=== PATIENT | female | born 1950 | race Caucasian/White ===

== ENCOUNTER 2016-04-20 16:02 | Inpatient (IN) | payer OTHER ==
--- NOTE | ~2016-04-20 | DS ---
Discharge Summary [facility] [address] [place]. [address] NAME: ROXANNA YOUNGER : 46 STATUS : DIS IN PAT#: [id number] AGE: 65 ADM/REG DATE : 04/20/16 MR#: [id number] REPORT SERV DATE: 04/29/16 DICTATED BY: JOSE MIGUEL NOBLE DATE: 04/29/16 REPORT STATUS : Draft TRANSCRIBED BY: MODL DATE: 04/29/16 ADMISSION DATE: 04/20/2016 DISCHARGE DATE: 04/29/2016 Please also refer to history of present illness dictated by Dr. Corona on 04/20/2016. Please also refer to Dr. Corona's interim discharge summary dictated on 04/25/2016. DIAGNOSES ON DISCHARGE: 1. Status post dehydration, present on admission, currently resolved. 2. Nausea and vomiting, present on admission secondary to gastroparesis, currently resolved. The patient tolerates her diet. 3. Diabetes mellitus, controlled. 4. History of permanent pacemaker placement in the past for history of sick sinus syndrome, currently stable. 5. Bipolar disorder. Evaluated by psychiatrist, Dr. Donis, in stable mood. There is no evidence of exacerbation. 6. Anxiety disorder, improved. 7. Hypothyroidism, controlled. CONSULTANTS ON THE CASE: Dr. Donis of Psychiatry as well as nurse practitioner of Gastroenterology, [place] and also alcohol still operator, Dr. Castillo Jorge. IMAGING STUDIES DONE DURING THIS HOSPITALIZATION: CT of the abdomen and pelvis with contrast done on 04/24/2016 showed small to moderate right and small pleural effusion on the left, as well as there was an enhancing pancreatic tail structure identified and a lesion was seen in the pancreatic head on the previous exam, which was identified on image 35, and measures about 0.9 to 1.[address] examination. It has stable appearance, and it raises concern that this may represent simply spare pancreatic tissue; however, strong consideration towards neuroendocrine tumor should also be considered. They appear to be little changed. The study performed in 2016 was without contrast initially. There was then an arterial study of the arterial and venous phases also performed at that time, showing the ductal system to be as prominent as on previous examination, so there is no evidence of any progressive biliary ductal enlargement. Common bile duct in the coronal plane on today's exam measures 0.93 cm. In the pelvis, there was a prior hysterectomy, there was some diverticular formation, no evidence of inflammation. Mesenteric duplex ultrasound did not show any evidence of stenosis. Chest x-ray, which was done on 04/27, was clear. HOSPITAL COURSE: Briefly, the patient was seen by Dr. Corona since admission until 04/27. When I saw the patient, the patient was very stable. She did not have any problems. She was tolerating her diet well when I saw her first time on 04/27, and her all medical problems were stable. She was waiting for placement, she needed inpatient rehabilitation because she Discharge Summary [address] [address] [place]. [address] NAME: ROXANNA YOUNGER : 46 STATUS : DIS IN PAT#: [id number] AGE: 65 ADM/REG DATE : 04/20/16 MR#: [id number] REPORT SERV DATE: 04/29/16 DICTATED BY: JOSE MIGUEL NOBLE DATE: 04/29/16 REPORT STATUS : Draft TRANSCRIBED BY: MITCHELL DATE: 04/29/16 had history of multiple falls in the past and she was recommended to have inpatient rehabilitation. She was also evaluated by Dr. Donis for her bipolar disorder, and Dr. Donis saw her for several consecutive days and he started her on Abilify, and he gave also recommendation to decrease the dose of clonazepam at night to 1 mg a day, and after seeing her for several days, he came to the conclusion that her mood is stable and she can be safely discharged to home or to rehabilitation wherever she will be approved. He also recommended the patient to follow up with [facility] psychiatrist in [place] in one to two weeks after discharge, so the patient was waiting for placement, but because her approval was delayed, today the patient refused to stay anymore in the hospital. She said that she understands that she is at risk for falling and she is at risk to harm her health if she will fall down, but she said that she cannot stay anymore in the hospital because her approval may take another week, and she strongly requested for her to be discharged today. I had a long discussion with the patient in the presence of nurse, Jennifer. I explained to her that since she lives alone, she may fall and she may have fractures and it can be dangerous for her health, but she understands this all and she said no matter what, she wants to be discharged, she wants to go home, and she said that her wheelchair at home is electrical and it is safer and she will follow all safety precautions. I also spoke with the patient's daughter, Sandra Rivera, and I told her that the patient wants to go home and she is refusing to stay in the hospital to wait for placement. She also understood it, and I encouraged her to discuss with her mother and to convince her to stay. She tried to convince her, but the patient refused. She said that she is going home. She is in clear mind and she understands that she may fall at home, but she still wants to be discharged. I spoke with Silvia, case hardener, that we were able to arrange for this patient for home health. Home Health to do physical therapy to help her with daily living to help her with medications, so now we will have Home Health to help with this patient, and I told her that she needs to be on fall precautions. She understands this. Her diabetes mellitus was very well controlled. She did not have any episodes of hypoglycemia. She was eating and drinking without any nausea and vomiting. Her blood sugar was 151 and 127. I recommended to use her metformin as needed because she told me that she sometimes only controls her diabetes with a diet. Also, Dr. Donis gave her prescription for Abilify 10 mg a day to continue, as well as she was given prescription for Protonix 40 mg p.o. twice a day. She refused to take Carafate. The patient to continue her levothyroxine at a dose of 125 p.o. daily and Reglan 10 mg before meals and at bedtime, which she takes at home. The patient to continue her tizanidine 4 mg at bedtime as needed and also the patient was recommended not to continue twice a day p.r.n., only 4 mg at bedtime as needed. The patient to decrease her bedside Klonopin to 1 mg a day, just take half of the pill that she has at home. The patient to stop Cymbalta. The patient to continue her Trintellix at 10 mg at bedtime and continue Imitrex as needed for headache, metformin 500 p.o. daily as needed if she needs it if blood sugar is elevated, Zofran 4-8 mg every six hours as needed. The patient was recommended to stop her hydrocodone. Once again, long discussion was held with the patient regarding understanding the risk of being discharged with the risk of fall. She understands everything, she is in clear mind. She was recommended to follow up with Dr. Baez next week; follow up with Dr. Plaza or Discharge Summary [address] [address] NAME: ROXANNA YOUNGER : 46 STATUS : DIS IN PAT#: [id number] AGE: 65 ADM/REG DATE : 04/20/16 MR#: [id number] REPORT SERV DATE: 04/29/16 DICTATED BY: JOSE MIGUEL NOBLE DATE: 04/29/16 REPORT STATUS : Draft TRANSCRIBED BY: MITCHELL DATE: 04/29/16 Dr. Jorge, appointment is scheduled for at 3:15 for her pancreatic lesion; follow up with Dr. Baez scheduled for 05/05 at 2:30. Regarding psychiatric services at [facility] at [place], we offered the patient to schedule with them, but she said that she will schedule herself as well as [facility] is arranged. The patient was discharged in stable condition. I spent 45 minutes on discharge. Her daughter was updated. /SUNL Jose Miguel Noble M.D. / [id number] CC: Forrest Raymond M.D. Gregory Olds, MD Denis Kennedy, M.D. James Scott Manton, M.D.
--- NOTE | ~2016-04-20 | IDS ---
Interim Discharge Summary [facility] [address] [place]. [address] NAME: ROXANNA YOUNGER : 46 STATUS : ADM IN [facility]#: [id number] AGE: 65 ADM/REG DATE : 04/20/16 MR#: [id number] REPORT SERV DATE: 04/25/16 DICTATED BY: DONNA WINSLOW DATE: 04/25/16 REPORT STATUS : Draft TRANSCRIBED BY: MODL DATE: 04/25/16 ADMISSION DATE: 04/20/2016 DISCHARGE DATE: CONSULTING PHYSICIANS: Dr. Donis for Psychiatry and Dr. Ramirez for GI. DIAGNOSES: 1. Status post dehydration, improved. 2. Nausea and vomiting with history of gastroparesis, improved. 3. Diabetes. 4. History of permanent pacemaker with sick sinus syndrome. 5. Bipolar disorder. 6. Anxiety disorder. 7. Hypothyroidism. DIAGNOSTIC EXAMS: Gastric emptying study showing significant improvement in gastric emptying compared to previous half time, it is now just below the upper limit of normal. Ultrasound of the abdomen showing fatty infiltration of the liver status post cholecystectomy. No significant bile duct dilatation. Pancreas not well visualized. Mild bilateral renal atrophy. Mesenteric duplex. Negative evidence for stenosis. CAT scan of the abdomen and pelvis showing small to moderate right and small left pleural effusion. Calcified coronaries. Ductal system is prominent, does not appear to be obstructed by mass. Enhancing pancreatic tail structure, similar to November 2015. Pancreatic head lesion measuring about 0.9-1.4 cm, stable in appearance from previous. HOSPITAL COURSE: Please refer to the H and P done by myself dated on 04/20/2016. Briefly, this is a 65-year-old female, who comes in for nausea and vomiting. 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 She was recently admitted and discharged from [facility] and adjusted her medications. She was placed on Depakote and she was not able to tolerate it and she has been having some nausea and vomiting. Got weaker and weaker, and was then brought to the PCPs office and she was referred for a direct admit. The patient was found to be dehydrated. We gave her some fluids. We got Psychiatry involved, and they adjusted her psychiatric medication while we took her off from Depakote. We got GI involved as well. We did the above tests and presently, the patient does not have any more nausea and vomiting. Slight increase her p.o. intake and seems to be tolerating soft food. She expressed her wishes to go to rehab. We got the report back from [facility] that they tried several rehab facilities and nobody wants to take her. This was discussed with her and our Case Management, and we are going to see if we are going to be more successful this time. It is unfortunate that she lives by herself, and she is basically wheelchair bound. If we are not able to get any rehab facility, she would likely go home with home health and home PT. A partner of mine will be following up the patient starting Tuesday. RLY/MODL Interim Discharge Summary [address] [place]. [address] NAME: ROXANNA YOUNGER : 46 STATUS : ADM IN PAT#: [id number] AGE: 65 ADM/REG DATE : 04/20/16 MR#: [id number] REPORT SERV DATE: 04/25/16 DICTATED BY: DONNA WINSLOW. DATE: 04/25/16 REPORT STATUS : Draft TRANSCRIBED BY: MODRamirez DATE: 04/25/16 Donna Winslow M.D. / [id number] CC: Forrest Prince M.D.
--- NOTE | ~2016-04-20 | HP ---
History And Physical [id number] [facility] [place]. [address] NAME: ROXANNA YOUNGER : 46 STATUS : ADM IN [facility]#: [id number] AGE: 65 ADM/REG DATE : 04/20/16 MR#: [id number] REPORT SERV DATE: 04/20/16 DICTATED BY: DONNA WINSLOW DATE: 04/20/16 REPORT STATUS : Draft TRANSCRIBED BY: MODL DATE: 04/20/16 DATE OF ADMISSION: 04/20/2016 HISTORY OF PRESENT ILLNESS: This is a 65-year-old female who was directly admitted for dehydration. The patient lives by herself and has been wheelchair bound for about 15 years now due to complications to her knees. She had a fall recently and was admitted to [facility]. During that time, they adjusted some of her medications including removing her from the Cymbalta and Brintellix and placed her on Depakote. She was seen by psychiatrist at that time. She was also treated for urinary tract infection, and according to Dr. Baez possible aspiration as well. The patient was being sent to rehab, however, the insurance company refused, and the patient was discharged to home. The patient did well for one day. However, she fell again and stayed on the ground for about a day. When her family saw her, they tried to help her out, however, she was not eating and she had some nausea and vomiting. She believes that it was the Depakote that is doing this, and she stopped taking this and went to see Dr. Baez today. He believed that the patient is dehydrated and sent the patient here to be hydrated, evaluated, and then he requested Dr. Jorge and the psychiatrist to see the patient. The patient did not have any fever, however, she felt warm and cold from time to time. There is no chills or sweats. There is no hematemesis. There was no note of any urinary or bowel changes. There is no cough or shortness of breath. She denies any near syncopal or syncopal episode. However, the Depakote, she told me make her feel strange and even combative at times. She denied any open wound or rashes. No seizures. REVIEW OF SYSTEMS: The rest of the 14-point review of system is negative except as above. PAST MEDICAL HISTORY: Includes lupus, rheumatoid arthritis, depression, bipolar, diabetes, sick sinus syndrome with permanent pacemaker, nephrolithiasis, TIA, migraine headaches, knee replacements with complications and MRSA, history of T-cell lymphoma of cheek, chronic back pain, orthostatic hypotension, pancreatic head nodule, PAD, genital herpes, UTIs, hypothyroidism, gastroparesis. PAST SURGICAL HISTORY: Bilateral knee surgery, right arm surgery, right ankle surgery, cholecystectomy, hysterectomy, appendectomy. ALLERGIES: SHE IS ALLERGIC TO CIPRO AND LAMICTAL. MEDICATIONS: Include Depakote, but previously on Cymbalta and Brintellix. She is on Klonopin, [place], Synthroid, metformin, Reglan, Zofran, Imitrex, Zanaflex. FAMILY HISTORY: Mom with heart disease and bowel surgery. Daughter with pain pump. The patient lives by herself, does not smoke, drink, or use recreational drugs. PHYSICAL EXAMINATION: GENERAL: The patient is alert and oriented x3, not in cardiopulmonary distress. VITAL SIGNS: Include a saturation of 93% on room air, temperature of 99.1, blood pressure of History And Physical [address] [address] NAME: ROXANNA YOUNGER : 46 STATUS : ADM IN [facility]#: [id number] AGE: 65 ADM/REG DATE : 04/20/16 MR#: [id number] REPORT SERV DATE: 04/20/16 DICTATED BY: DONNA WINSLOW DATE: 04/20/16 REPORT STATUS : Draft TRANSCRIBED BY: MODL DATE: 04/20/16 140/80, respiratory rate of 14, heart rate of 65. NECK: She has supple neck. No JVD or carotid bruits. No lymphadenopathy. [place] conjunctivae. Anicteric sclerae. No pharyngeal erythema. LUNGS: Clear lungs. No rales, no wheezes. CARDIOVASCULAR: Regular rate and rhythm. No murmurs appreciated. Positive bowel sounds. Soft, nontender, no masses. EXTREMITIES: Fair pulses. No edema. NEURO: Nonlocalizing. ASSESSMENT: 1. Dehydration. 2. Nausea and vomiting with history of gastroparesis. 3. Diabetes. 4. History of rheumatoid arthritis and lupus. 5. Bipolar with anxiety. 6. History of permanent pacemaker with sick sinus syndrome. 7. Peripheral artery disease. PLAN: The patient will need to be admitted for her dehydration. We will check her labs, hydrate her. We will continue her home medications, but we will restart the Cymbalta and Trintellix and get Psychiatric consult. We will place her on antiemetics, subcu insulin protocol, check the hemoglobin A1c and TSH. We will re-hold her metformin for now. We will get GI consult for gastroparesis as requested by the patient and her PCP. This has been explained to the patient in front of the daughter and they agreed and understood the plan. BRITTNEY/MITCHELL Donna Winslow M.D. / [id number] CC: Forrest Prince M.D.
--- NOTE | ~2016-04-20 | EGD ---
EGD REPORT [facility] [address] [address] NAME: ROXANNA YOUNGER : 46 STATUS : ADM IN PAT#: [id number] AGE: 65 ADM/REG DATE : 04/20/16 MR#: [id number] REPORT SERV DATE: 04/23/16 DICTATED BY: JUSTIN HUERTA DATE: 04/23/16 REPORT STATUS : Draft TRANSCRIBED BY: [facility] DATE: 04/23/16 Endoscopy Center Patient Name: Roxanna Younger Date of : 1950 Attending MD: JUSTIN HUERTA MD Procedure Date No Time: 04/23/2016 Procedure: Upper GI endoscopy Indications: Epigastric abdominal pain, Dyspepsia, Persistent vomiting of unknown cause Referring MD: LORETTA ROMO Medicines: Monitored Anesthesia Care Complications: No immediate complications. Estimated blood loss: Minimal. Procedure: Pre-Anesthesia Assessment: - ASA Grade Assessment: III - A patient with severe systemic disease. After obtaining informed consent, the endoscope was passed under direct vision. Throughout the procedure, the patient's blood pressure, pulse, and oxygen saturations were monitored continuously. The GIF [id number] was introduced through the mouth, and advanced to the second part of duodenum. The upper GI endoscopy was accomplished without difficulty. The patient tolerated the procedure well. Findings: The examined esophagus was normal. Patchy mildly erythematous mucosa without bleeding was found in the gastric antrum. There was also a scar in the antrum suggestive of prior peptic ulcer disease. Biopsies were taken with a cold forceps for Helicobacter pylori testing. Estimated blood loss was minimal. The examined duodenum was normal. The cardia and gastric fundus were normal on retroflexion. The exam was otherwise without abnormality. Impression: - Erythematous mucosa in the antrum. Biopsied. - The examination was otherwise normal. Recommendation: - Return patient to hospital [facility] for ongoing care. - Clear liquid diet. - Continue Reglan QID - Use Protonix (pantoprazole) 40 mg PO BID. - Check Mesenteric US Procedure Code(s): --- Professional --- EGD REPORT [facility] [address] [facility] [place]. [address] NAME: ROXANNA YOUNGER : 46 STATUS : ADM IN [facility]#: [id number] AGE: 65 ADM/REG DATE : 04/20/16 MR#: [id number] REPORT SERV DATE: 04/23/16 DICTATED BY: JUSTIN HUERTA DATE: 04/23/16 REPORT STATUS : Draft TRANSCRIBED BY: [facility] SERVICES DATE: 04/23/16 [id number], Esophagogastroduodenoscopy, flexible, transoral; with biopsy, single or multiple Diagnosis Code(s): --- Professional --- K31.9, Disease of stomach and duodenum, unspecified R10.13, Epigastric pain K30, Functional dyspepsia R11.10, Vomiting, unspecified CPT copyright 2013 [employer]. All rights reserved. The codes documented in this report are preliminary and upon clinical coder review may be revised to meet current compliance requirements. Justin Huerta MD JUSTIN HUERTA MD 04/23/2016 8:24 AM This report has been signed electronically. Number of Addenda: 0 Note Initiated On: 04/23/2016 7:47 AM Scope Withdrawal Time 0 hours 0 minutes 0 seconds [address] [facility] [place] [address]
--- NOTE | ~2016-04-20 | CN ---
Consultation Report [facility] [address] [place]. [address] NAME: ROXANNA YOUNGER : 46 STATUS : ADM IN PAT#: [id number] AGE: 65 ADM/REG DATE : 04/20/16 MR#: [id number] REPORT SERV DATE: 04/21/16 DICTATED BY: TAI CHU DATE: 04/21/16 REPORT STATUS : Draft TRANSCRIBED BY: MODL DATE: 04/21/16 PSYCHIATRIC CONSULTATION DATE OF CONSULTATION: 04/21/2016 I reviewed this patient's current and old medical records. I discussed patient's status with her nurse. HISTORY OF PRESENT ILLNESS: She was admitted with nausea and dehydration. I was consulted to address her bipolar status. PAST PSYCHIATRIC HISTORY: She was at [facility] recently, probably within the past month, when she was seen by the psychiatrist there and her psychotropic medications were changed. Her Cymbalta and Brintellix were stopped and Depakote was started. After discharge from [place], she experienced nausea, anorexia, and vomiting. She attributed these problems to the Depakote and she stopped taking it. She reports that she had a similar problem with Depakote when this medication was introduced a number of years ago. It should be noted that Brintellix recently had a name change to Trintellix. She reports that she has suffered from recurring bouts of depression for over 10 years. She also has experienced periods of heightened motion and energy and periods of severe insomnia where she went without sleep for a number of days at a time. SOCIAL HISTORY: She lives alone. She is wheelchair-bound because of failed bilateral knee replacements. Her daughter lives nearby and she checks on her frequently. Her mother also lives in the area. FAMILY HISTORY: A maternal uncle suffered from depression. MENTAL STATUS: She was awake and alert. Her mood was anxious and depressed. Her affect was labile. Her thinking was logical. She had no delusions. She had no hallucinations. She was oriented to time, place, and person. She demonstrated good, recent, and remote memory. DIAGNOSIS: Bipolar disorder, NOS. RECOMMENDATIONS: 1. Discontinue Cymbalta. 2. Continue Trintellix 10 mg at bedtime. 3. Continue Klonopin 2 mg at bedtime. 4. Add Abilify 5 mg at bedtime. 5. Request a copy of her discharge summary and psychiatric consultation from [facility]. 6. I will follow during this hospitalization. 7. After discharge, she should seek followup, outpatient, psychiatric care at [facility] in [place]. Consultation Report [place] [address] [place]. [address] NAME: ROXANNA YOUNGER : 46 STATUS : ADM IN PAT#: [id number] AGE: 65 ADM/REG DATE : 04/20/16 MR#: [id number] REPORT SERV DATE: 04/21/16 DICTATED BY: TAI CHU DATE: 04/21/16 REPORT STATUS : Draft TRANSCRIBED BY: MITCHELL DATE: 04/21/16 RODRIGUEZ/MITCHELL Tai Chu M.D. / [id number] CC: Forrest Prince M.D.
--- NOTE | ~2016-04-20 | CN ---
Consultation Report [facility] [address] [place]. [address] NAME: ROXANNA YOUNGER : 46 STATUS : ADM IN PAT#: [id number] AGE: 65 ADM/REG DATE : 04/20/16 MR#: [id number] REPORT SERV DATE: 04/21/16 DICTATED BY: YAQUELIN RODRIGUEZ DATE: 04/21/16 REPORT STATUS : Draft TRANSCRIBED BY: MODL DATE: 04/21/16 GI CONSULTATION DATE OF CONSULTATION: 04/21/2016 REASON FOR CONSULTATION: Evaluation and management of nausea, vomiting, epigastric abdominal pain. HISTORY OF PRESENT ILLNESS: Ms. Younger is a pleasant 65-year-old female patient, who is known to Dr. Jorge. She presented to [facility] on 04/20 as a direct admission from her primary care physician's office, Dr. Baez, for dehydration. She states that she has been having ongoing issues with nausea and vomiting, she tells me, really for the past month. She tells me she was recently admitted to [facility] secondary to a fall with a left hip pain. She states that there, she had difficulty getting the correct medications for her gastrointestinal tract as well as her psychiatric medications. She had continued nausea at [place], but was subsequently discharged. She states this continued at home, she states that she would get hungry, she would eat only to "regret it" with epigastric pain and burning. She denies any dysphagia. She states that she is having what she feels like is regular bowel movements without any indication of blood. She has not vomited up anything that appeared to be coffee-ground or hematemesis in nature. She has not had any abdominal imaging at this time, aside from a gastric emptying study, which appears to be significantly improved since the one she had in 2013. Last endoscopic evaluation with Dr. Jorge was in 2013 when she underwent an endoscopic ultrasound. At that time, she had a normal esophagus, she had some gastritis as well as erosions in her stomach, a scar in the gastric antrum, normal duodenum. I have discussed with her, she states she is supposed to see Dr. Jorge in the near future as an outpatient, we will plan on pursuing upper endoscopy tomorrow. Risks, benefits, alternatives, and complications were detailed for her to include, but not limited to risk of bleeding, perforation, infection, reaction to medications, as well as cardiac and pulmonary side effects. She is agreeable to proceed. PAST MEDICAL HISTORY: Positive for lupus, rheumatoid arthritis, depression, bipolar disorder, diabetes, pacemaker placement secondary to sick sinus syndrome, kidney stones, TIA, obstructive sleep apnea, migraine headaches, MRSA, T-cell lymphoma of the cheek, chronic back pain with epidural injections, orthostatic hypotension, pancreatic head nodule, peripheral arterial disease, urinary tract infections, hypothyroidism, gastroparesis. PAST SURGICAL HISTORY: Bilateral knee, pacemaker placement, T-cell lymphoma removal, right arm surgery, right ankle surgery, cholecystectomy, hysterectomy, appendectomy. SOCIAL HISTORY: She still lives independently. She denies alcohol, tobacco, or illicits. FAMILY HISTORY: Noncontributory from a GI standpoint. ALLERGIES: CIPRO, TEMAZEPAM, CODEINE. Consultation Report [place] [id number] [facility] [place]. [address] NAME: ROXANNA YOUNGER : 46 STATUS : ADM IN [facility]#: [id number] AGE: 65 ADM/REG DATE : 04/20/16 MR#: [id number] REPORT SERV DATE: 04/21/16 DICTATED BY: YAQUELIN RODRIGUEZ DATE: 04/21/16 REPORT STATUS : Draft TRANSCRIBED BY: MITCHELL DATE: 04/21/16 HOME MEDICATIONS: Klonopin, Cymbalta, [place], Synthroid, Glucophage, Reglan, Zofran, Imitrex, Zanaflex, and Trintellix. REVIEW OF SYSTEMS: A 10-point review of systems obtained with pertinent positives addressed in the history of present illness. PERTINENT LABORATORY DATA: Sodium 139, potassium 4.1, BUN is 30, creatinine 1.41. White count 5.4, hemoglobin 11.7, hematocrit 36.6. INR of 1.2. PHYSICAL EXAMINATION: VITAL SIGNS: Temperature 97.9, pulse 81, respirations of 16, and blood pressure 119/57. NEURO: Reveals an alert, obese, weak female, resting in bed. GENERAL: She is cooperative. She is in no obvious distress. She is awake, alert, and oriented x3. HEAD, EARS, EYES, NOSE, AND THROAT: Anicteric. Pupils equal, round, reactive to light and accommodation. Normocephalic and atraumatic. NECK: No JVD. No palpable nodes. LUNGS: Diminished in the bases. Clear in the upper lobes. CARDIOVASCULAR SYSTEM: Regular rate and rhythm. ABDOMEN: Soft and obese. Mildly tender to palpation in the epigastric region. No rebound, guarding, or organomegaly elicited on exam. Active bowel sounds in all four quadrants. SKIN: Warm, dry, and intact. ASSESSMENT: 1. Nausea and vomiting. 2. Epigastric abdominal pain. 3. Dehydration. 4. Past medical history of gastroparesis with improved gastric emptying study this admission. 5. History of recent falls. PLAN: 1. PPI and Carafate. 2. N.P.O. after midnight. 3. EGD in the morning. 4. Question if she needs mesenteric ultrasound at some point as she complains of extreme abdominal pain after eating. However, we will start with EGD and other recommendations to follow. EBONY/MITCHELL Consultation Report [place] [address] [place]. [address] NAME: ROXANNA YOUNGER : 46 STATUS : ADM IN [facility]#: [id number] AGE: 65 ADM/REG DATE : 04/20/16 MR#: [id number] REPORT SERV DATE: 04/21/16 DICTATED BY: YAQUELIN RODRIGUEZ DATE: 04/21/16 REPORT STATUS : Draft TRANSCRIBED BY: MITCHELL DATE: 04/21/16 Gracey MUNIRA Franklin / [id number] CC: Forrest Prince M.D.
[~2016-04-20 16:02] MED LIST: AMB10 PO; AMBIEN CR12.5 MG PO; AMLACTIN12 % EX; AVANDIA4 PO; BISR PR; CEFT5 PO; CORTEF20 MG PO; CYMBALTA20 PO; CYMBALTA60 PO; D100 PO; DAYQUIL PO; DEPAKOT500 PO; DIL2TAB PO; DIL4TAB PO; DURA100 TOP; ENDOCET1 TA3 PO; FLAGIV500 PO; FLEETS ENEMA; GENTAK0.3 % OPH; GEODON80 PO; GLUCPH PO; HORMONE; HORMONE PELLET; HYDROCODONE PO; IMITREX100 MG PO; IMITREX50 PO; KEPPRA500 PO; KLONO2 PO; KLOR-CON M2020 MEQ PO; LEXAPRO10 PO; LORTAB10 PO; MACROBID PO; MAGOX4 PO; METFORMIN; MIGRANAL4 MG/ML; MOMUD PO; NOVOLOG SC; ONABOTULINUMTOXINA IM; P10 PO; P20 PO; PEPTO BISMOL LIQ1 ML PO; PERCOCET1 TA4 PO; PR25 PO; PRILO PO; PROAMAT5 PO; PROVHFA INH; REG PO; SYN1 PO; TOPAMAX200 MG PO; TOPAMAX25 PO; ZANAFLEX 4 MG TA4 MG OR; ZANAFLEX 4 MG TA4 MG PO; ZANAFLEX2 MG PO; ZOFRAN ODT4 MG PO; ZOFRAN4 PO; [UNRECOGNIZED DRUG - OTHER]; [UNRECOGNIZED DRUG - OTHER]; [UNRECOGNIZED DRUG - OTHER] TOP; [UNRECOGNIZED DRUG - OTHER] TOP
[2016-04-20] MEDS ORDERED: CYMBALTA60 PO (16:53)
[2016-04-20] MEDS ORDERED: ZANAFLEX 4 MG TA4 MG PO ×2 (16:54)
[2016-04-20] MEDS ORDERED: IMITREX100 MG PO (16:54)
[2016-04-20] MEDS ORDERED: TRINTELLIX10 MG PO (16:54)
[2016-04-20] MEDS ORDERED: KLONO2 PO (16:55)
[2016-04-20] MEDS ORDERED: GLUCPH PO (16:55)
[2016-04-20] MEDS ORDERED: SYN125 PO (16:55)
[2016-04-20] MEDS ORDERED: REG PO (16:56)
[2016-04-20] MEDS ORDERED: NORCO1 TA2 PO (16:56)
[2016-04-20] MEDS ORDERED: ZOFRAN4 PO (16:56)
[2016-04-20 19:26] LABS: BASOPHILS 0.4 %; BASOPHILS ABSOLUTE 0.02 10/3/uL (0.0-0.16); EOSINOPHILS 0.2 %; EOSINOPHILS ABSOLUTE 0.01 10/3/uL (0.0-0.53); HEMATOCRIT 36.6 % (36.0-48.0); HEMOGLOBIN 11.7 g/dL (12.0-16.0); IMMATURE GRANULOCYTES 0.2 %; IMMATURE GRANULOCYTES ABSOLUTE 0.01 10/3/uL (0.0-0.11); LYMPHOCYTES 23.4 %; LYMPHOCYTES ABSOLUTE 1.26 10/3/uL (0.67-4.30); MEAN CORPUSCULAR HEMOGLOB 28.2 pg (26.0-34.0); MEAN CORPUSCULAR VOLUME 88.2 fL (80-100); MEAN PLATELET VOLUME 12.8 fL (9.2-13.0); MONOCYTES 22.9 %; MONOCYTES ABSOLUTE 1.23 10/3/uL (0.21-1.20); NEUTROPHILS 52.9 %; NEUTROPHILS ABSOLUTE 2.85 10/3/uL (2.02-8.40); PLATELET COUNT 143 10/3/uL (150-400); RBC DISTRIBUTION WIDTH 14.7 % (12.0-16.0); RED CELL COUNT 4.15 10/6/uL (4.0-5.6)
[2016-04-20 19:35] LABS: INTERNATIONAL NORMAL RATI 1.2 UNITS (-); PARTIAL THROMBO TIME 28.7 SEC (22.5-37.2); PROTIME (NOT ORD) 14.6 SEC (12.0-14.5)
[2016-04-20 19:42] LABS: MANUAL DIFF NO %; WHITE BLOOD CELLS 5.4 10/3/uL (4.5-10.5)
[2016-04-20 19:45] LABS: BAND NEUTROPHILS 1 %; EOSINOPHILS 1 %; EOSINOPHILS ABSOLUTE (CALC) 0.05 10/3/uL (0.0-0.53); LYMPHOCYTES 19 %; LYMPHOCYTES ABSOLUTE (CALC) 1.03 10/3/uL (0.67-4.30); MONOCYTES 17 %; MONOCYTES ABSOLUTE (CALC) 0.92 10/3/uL (0.21-1.20); PLATELET ESTIMATE SLT DEC (ADEQUATE); SEGMENTED NEUTROPHIL (0) 62 %; TOTAL NUCLEATED CELLS 100
[2016-04-20 19:46] LABS: RBC MORPHOLOGY NORM (NORMAL)
[2016-04-20 19:48] LABS: A/G RATIO 0.7 (0.7-1.9); ALBUMIN 3.1 G/DL (3.5-5.0); CALCIUM, SERUM 8.1 MG/DL (8.5-10.4); CHLORIDE, SERUM 101 MMOL/L (96-112); CO2 (CARBON DIOXIDE) 29 MMOL/L (24-34); GLOBULIN 4.2 G/DL (2.5-4.1); GLUCOSE, SERUM 88 MG/DL (60-99); POTASSIUM, SERUM 4.1 MMOL/L (3.5-5.3); SGOT(AST) 74 U/L (5-40); SGPT(ALT) 49 U/L (5-65); SODIUM, SERUM 139 MMOL/L (135-148); TOTAL BILIRUBIN 0.4 MG/DL (0-1.2); TOTAL PROTEIN 7.3 G/DL (6.0-8.5)
[2016-04-20 19:51] LABS: ALKALINE PHOSPHATASE 102 U/L (45-117); BUN (BLOOD UREA NITROGEN) 30 MG/DL (6-23); CREATININE 1.41 MG/DL (0.55-1.02); GFR AFRICAN AMERICAN 45 ML/MIN (>=60); GFR NON AFRICAN AMERICAN 38 ML/MIN (>=60); PHOSPHORUS, SERUM 3.6 MG/DL (2.5-4.5); ULTRASENSITIVE TSH 0.784 MCIU/ML (0.358-3.740)
[2016-04-20 20:19] LABS: ASCORBIC ACID (UR NOT ORDER) NEG (NEG); BILIRUBIN, URINE NEGATIVE (NEG); KETONE, URINE TRACE MG/DL (NEG); LEUKOCYTE ESTERASE(NOT OR TRACE (NEG); WBC (NOT ORDERED) (RFLEX) 9 (0-5)
[2016-04-22 06:36] LABS: HEMOGLOBIN 10.3 g/dL (12.0-16.0); MEAN CORPUS HGB CONC 32.2 g/dL (32.0-36.0); MEAN CORPUSCULAR HEMOGLOB 28.8 pg (26.0-34.0); MEAN CORPUSCULAR VOLUME 89.4 fL (80-100); MEAN PLATELET VOLUME 12.8 fL (9.2-13.0); PLATELET COUNT 106 10/3/uL (150-400); RBC DISTRIBUTION WIDTH 14.6 % (12.0-16.0); RED CELL COUNT 3.58 10/6/uL (4.0-5.6)
[2016-04-22 06:39] LABS: MANUAL DIFF YES %; WHITE BLOOD CELLS 2.3 10/3/uL (4.5-10.5)
[2016-04-22 06:45] LABS: BUN (BLOOD UREA NITROGEN) 19 MG/DL (6-23); CALCIUM, SERUM 7.2 MG/DL (8.5-10.4); CHLORIDE, SERUM 112 MMOL/L (96-112); CO2 (CARBON DIOXIDE) 25 MMOL/L (24-34); CREATININE 1.04 MG/DL (0.55-1.02); GFR AFRICAN AMERICAN 64 ML/MIN (>=60); GFR NON AFRICAN AMERICAN 56 ML/MIN (>=60); GLUCOSE, SERUM 85 MG/DL (60-99); POTASSIUM, SERUM 3.8 MMOL/L (3.5-5.3); SODIUM, SERUM 144 MMOL/L (135-148)
[2016-04-22 07:02] LABS: BAND NEUTROPHILS 4 %; EOSINOPHILS 1 %; EOSINOPHILS ABSOLUTE (CALC) 0.02 10/3/uL (0.0-0.53); LYMPHOCYTES 37 %; LYMPHOCYTES ABSOLUTE (CALC) 0.85 10/3/uL (0.67-4.30); MONOCYTES 7 %; MONOCYTES ABSOLUTE (CALC) 0.16 10/3/uL (0.21-1.20); NEUTROPHILS ABSOLUTE (CALC) 1.27 10/3/uL (2.02-8.40); SEGMENTED NEUTROPHIL (0) 51 %; TOTAL NUCLEATED CELLS 100
[2016-04-22 07:03] LABS: PLATELET ESTIMATE SLT DEC (ADEQUATE)
[2016-04-22 07:04] LABS: RBC MORPHOLOGY NORM (NORMAL)
[2016-04-23 06:38] LABS: BASOPHILS 0.9 %; BASOPHILS ABSOLUTE 0.02 10/3/uL (0.0-0.16); EOSINOPHILS 3.3 %; EOSINOPHILS ABSOLUTE 0.07 10/3/uL (0.0-0.53); HEMATOCRIT 32.3 % (36.0-48.0); HEMOGLOBIN 10.3 g/dL (12.0-16.0); LYMPHOCYTES 63.2 %; LYMPHOCYTES ABSOLUTE 1.34 10/3/uL (0.67-4.30); MEAN CORPUS HGB CONC 31.9 g/dL (32.0-36.0); MEAN CORPUSCULAR HEMOGLOB 28.4 pg (26.0-34.0); MEAN PLATELET VOLUME 12.2 fL (9.2-13.0); MONOCYTES 11.8 %; MONOCYTES ABSOLUTE 0.25 10/3/uL (0.21-1.20); NEUTROPHILS 20.8 %; NEUTROPHILS ABSOLUTE 0.44 10/3/uL (2.02-8.40); PLATELET COUNT 96 10/3/uL (150-400); RBC DISTRIBUTION WIDTH 14.5 % (12.0-16.0); RED CELL COUNT 3.63 10/6/uL (4.0-5.6)
[2016-04-23 06:42] LABS: INTERNATIONAL NORMAL RATI 1.2 UNITS (-); PROTIME (NOT ORD) 15.1 SEC (12.0-14.5)
[2016-04-23 06:45] LABS: MANUAL DIFF YES %; WHITE BLOOD CELLS 2.1 10/3/uL (4.5-10.5)
[2016-04-23 06:50] LABS: CALCIUM, SERUM 7.5 MG/DL (8.5-10.4); CHLORIDE, SERUM 117 MMOL/L (96-112); CO2 (CARBON DIOXIDE) 23 MMOL/L (24-34); CREATININE 0.83 MG/DL (0.55-1.02); GFR AFRICAN AMERICAN 85 ML/MIN (>=60); GFR NON AFRICAN AMERICAN 73 ML/MIN (>=60); GLUCOSE, SERUM 82 MG/DL (60-99); POTASSIUM, SERUM 3.8 MMOL/L (3.5-5.3); SODIUM, SERUM 149 MMOL/L (135-148)
[2016-04-23 06:52] LABS: BUN (BLOOD UREA NITROGEN) 11 MG/DL (6-23)
[2016-04-23 07:39] LABS: BAND NEUTROPHILS 4 %; EOSINOPHILS 2 %; EOSINOPHILS ABSOLUTE (CALC) 0.04 10/3/uL (0.0-0.53); IMMATURE GRANS ABSOLUTE (CALC) 0.02 10/3/uL (0.0-0.11); LYMPHOCYTES 41 %; LYMPHOCYTES ABSOLUTE (CALC) 0.86 10/3/uL (0.67-4.30); METAMYELOCYTES 1 %; MONOCYTES 12 %; MONOCYTES ABSOLUTE (CALC) 0.25 10/3/uL (0.21-1.20); NEUTROPHILS ABSOLUTE (CALC) 0.92 10/3/uL (2.02-8.40); SEGMENTED NEUTROPHIL (0) 40 %; TOTAL NUCLEATED CELLS 100
[2016-04-23 07:40] LABS: HYPOCHROMIA 1+ (3-10/OIF) (0-2/OIF); MICROCYTES 1+ (5-10/OIF) (0-5/OIF); PLATELET ESTIMATE DEC (ADEQUATE)
[2016-04-24 06:49] LABS: CALCIUM, SERUM 7.6 MG/DL (8.5-10.4); CHLORIDE, SERUM 115 MMOL/L (96-112); CO2 (CARBON DIOXIDE) 23 MMOL/L (24-34); CREATININE 0.81 MG/DL (0.55-1.02); GFR AFRICAN AMERICAN 87 ML/MIN (>=60); GFR NON AFRICAN AMERICAN 75 ML/MIN (>=60); POTASSIUM, SERUM 3.6 MMOL/L (3.5-5.3); SODIUM, SERUM 148 MMOL/L (135-148)
[2016-04-24 06:51] LABS: BUN (BLOOD UREA NITROGEN) 7 MG/DL (6-23); GLUCOSE, SERUM 112 MG/DL (60-99)
[2016-04-24 07:01] LABS: HEMATOCRIT 34.5 % (36.0-48.0); HEMOGLOBIN 11.3 g/dL (12.0-16.0); MEAN CORPUS HGB CONC 32.8 g/dL (32.0-36.0); MEAN CORPUSCULAR HEMOGLOB 29.1 pg (26.0-34.0); MEAN CORPUSCULAR VOLUME 88.9 fL (80-100); MEAN PLATELET VOLUME 12.8 fL (9.2-13.0); PLATELET COUNT 105 10/3/uL (150-400); RBC DISTRIBUTION WIDTH 14.6 % (12.0-16.0); RED CELL COUNT 3.88 10/6/uL (4.0-5.6)
[2016-04-24 07:35] LABS: MANUAL DIFF YES %; WHITE BLOOD CELLS 2.3 10/3/uL (4.5-10.5)
[2016-04-24 08:10] LABS: BASOPHILS 1 %; BASOPHILS ABSOLUTE (CALC) 0.02 10/3/uL (0.0-0.16); EOSINOPHILS 4 %; EOSINOPHILS ABSOLUTE (CALC) 0.09 10/3/uL (0.0-0.53); LYMPHOCYTES 55 %; LYMPHOCYTES ABSOLUTE (CALC) 1.27 10/3/uL (0.67-4.30); MONOCYTES 8 %; MONOCYTES ABSOLUTE (CALC) 0.18 10/3/uL (0.21-1.20); NEUTROPHILS ABSOLUTE (CALC) 0.74 10/3/uL (2.02-8.40); SEGMENTED NEUTROPHIL (0) 32 %; TOTAL NUCLEATED CELLS 100
[2016-04-24 08:11] LABS: PLATELET ESTIMATE SLT DEC (ADEQUATE); RBC MORPHOLOGY NORM (NORMAL)
[2016-04-25 08:30] LABS: BUN (BLOOD UREA NITROGEN) 5 MG/DL (6-23); CALCIUM, SERUM 7.9 MG/DL (8.5-10.4); CHLORIDE, SERUM 113 MMOL/L (96-112); CO2 (CARBON DIOXIDE) 25 MMOL/L (24-34); CREATININE 0.83 MG/DL (0.55-1.02); GFR AFRICAN AMERICAN 85 ML/MIN (>=60); GFR NON AFRICAN AMERICAN 73 ML/MIN (>=60); GLUCOSE, SERUM 100 MG/DL (60-99); POTASSIUM, SERUM 3.6 MMOL/L (3.5-5.3); SODIUM, SERUM 148 MMOL/L (135-148)
[2016-04-29] MEDS ORDERED: ABILIFY10 PO (15:25)
[2016-04-29] MEDS ORDERED: PROTONIX PO (15:25)
== END 2016-04-29 16:55 | disposition home health service (06) | DRG 74 ==
LOC: 4SO 16:02 → 5SO 04-21 13:07
PROVIDERS: Internal Medicine; Internal Medicine Gastroenterology; Nurse Practitioner Family
PROC: 0DB68ZX Excision of Stomach, Via Natural or Artificial Opening Endoscopic, Diagnostic (ICD-10-PCS; principal; 2016-04-23 07:00)
DX: E11.43 Type 2 diabetes mellitus with diabetic autonomic (poly)neuropathy (principal); N17.9 Acute kidney failure, unspecified; I49.5 Sick sinus syndrome; M32.9 Systemic lupus erythematosus, unspecified; E86.0 Dehydration; Z99.3 Dependence on wheelchair; Z79.899 Other long term (current) drug therapy; M06.9 Rheumatoid arthritis, unspecified; F31.9 Bipolar disorder, unspecified; F41.9 Anxiety disorder, unspecified; Z95.0 Presence of cardiac pacemaker; Z86.73 Personal history of transient ischemic attack (TIA), and cerebral infarction without residual deficits; Z96.653 Presence of artificial knee joint, bilateral; E03.9 Hypothyroidism, unspecified; Z87.440 Personal history of urinary (tract) infections; Z90.710 Acquired absence of both cervix and uterus; Z98.890 Other specified postprocedural states; Z88.1 Allergy status to other antibiotic agents; Z88.8 Allergy status to other drugs, medicaments and biological substances; Z79.84 Long term (current) use of oral hypoglycemic drugs; Z82.49 Family history of ischemic heart disease and other diseases of the circulatory system; K31.84 Gastroparesis; E66.9 Obesity, unspecified; Z68.35 Body mass index [BMI] 35.0-35.9, adult
CPT/HCPCS: 71010; 74177; 76700; 78264; 80048; 80053; 81001; 82150; 82962; 83036; 83690; 83735; 84100; 84443; 85025; 85610; 85730; 88305; 93005; 93975; 97162-GP; A9270-GY; A9541; C9113; J2405; P9047; Q9967